=== PATIENT | male | born 1980 | race Caucasian/White ===

== ENCOUNTER 2023-06-10 17:01 | Emergency (ER) | payer SELFPAY ==
[~2023-06-10] VITALS: Ht 160 cm; Wt 75.0 kg
[~2023-06-10 17:01] MED LIST: CARDIZEM CD 12120 MG PO; NO HOME MEDICATIONS; ZESTRIL 5MG5 MG PO
[2023-06-10 17:07] VITALS: TEMP 102.7
[2023-06-10 17:28] LABS: BASO % 0.6 % (0.0-2.0); EOS % 0.2 % (0.0-4.0); GRAN # 3.4 K/mm3 (1.4-6.5); GRAN % 67.4 % (42.2-75.2); HEMATOCRIT 42.3 % (42.0-52.0); HEMOGLOBIN 14.6 g/dl (13.5-18.0); LYMPH # 1.1 K/mm3 (1.2-3.4); LYMPH % 22.2 % (20.0-51.0); MEAN CELL VOLUME 89 fl (80.0-100.0); MEAN CORPUSCULAR HEMOGLOBIN 31 pg (27-31); MEAN CORPUSCULAR HGB CONC 35 g/dl (33.0-37.0); MEAN PLATELET VOLUME 11.1 fl (7.4-10.4); MONO # 0.5 K/mm3 (0.1-0.6); MONO % 9.4 % (1.7-9.3); PLATELET COUNT 177 K/mm3 (130-400); RED BLOOD COUNT 4.76 M/mm3 (4.20-5.60); REDCELL DISTRIBUTION WIDTH-CV 12.6 % (11.5-14.5)
[2023-06-10] MEDS ORDERED: Acetaminophen 500 MG TAB PO ONE (17:30)
[2023-06-10 18:10] LABS: ALANINE AMINOTRANSFERASE 35 U/L (0-55); ALKALINE PHOSPHATASE 57 U/L (40-150); ANION GAP 11 mmol/L (7-16); AST,SGOT 25 U/L (5-34); BILIRUBIN,TOTAL 0.4 mg/dL (0.2-1.2); BLOOD UREA NITROGEN 12 mg/dL (9-21); CALCIUM 9.2 mg/dL (8.4-10.2); CHLORIDE 103 mEq/L (98-107); CREATININE, serum 1.04 mg/dL (0.72-1.25); GLUCOSE 112 mg/dL (70-99); POTASSIUM 3.9 mEq/L (3.5-4.5); SODIUM 135 mEq/L (136-145)
[2023-06-10] MEDS ORDERED: NS 1,000 ML IV ONE (18:15)
[2023-06-10] MEDS ORDERED: Ondansetron 4 MG/2 ML VIAL IV ONE (18:15)
[2023-06-10 18:16] LABS: TROPONIN-I < 0.010 ng/mL (0.00-0.033)
[2023-06-10 19:46] VITALS: BP 121/73; PULSE 84
== END 2023-06-10 19:55 | disposition home or self-care (01) ==
LOC: COL.ER 17:01
PROVIDERS: Physician Assistant
DX: J10.1 Influenza due to other identified influenza virus with other respiratory manifestations (principal); E87.1 Hypo-osmolality and hyponatremia
CPT/HCPCS: J2405; J7030

== ENCOUNTER 2023-08-26 13:07 | Emergency (ER) | payer SELFPAY ==
[~2023-08-26] VITALS: Ht 165.1 cm; Wt 76.2 kg
[2023-08-26 13:14] VITALS: TEMP 98.1
[2023-08-26] MEDS ORDERED: PRINIVIL5 MG PO (13:21)
[2023-08-26] MEDS ORDERED: PRINZIDE 25 MG-1 TAB PO (13:23)
[2023-08-26 13:49] LABS: BASO # 0.1 K/mm3 (0.0-0.2); BASO % 0.8 % (0.0-2.0); EOS # 0.1 K/mm3 (0.0-0.7); EOS % 1.5 % (0.0-4.0); GRAN # 3.2 K/mm3 (1.4-6.5); GRAN % 49.4 % (42.2-75.2); HEMATOCRIT 42.4 % (42.0-52.0); HEMOGLOBIN 14.3 g/dl (13.5-18.0); LYMPH # 2.7 K/mm3 (1.2-3.4); LYMPH % 41.4 % (20.0-51.0); MEAN CELL VOLUME 89 fl (80.0-100.0); MEAN CORPUSCULAR HEMOGLOBIN 30 pg (27-31); MEAN CORPUSCULAR HGB CONC 34 g/dl (33.0-37.0); MONO # 0.4 K/mm3 (0.1-0.6); MONO % 6.6 % (1.7-9.3); PLATELET COUNT 234 K/mm3 (130-400); RED BLOOD COUNT 4.75 M/mm3 (4.20-5.60); REDCELL DISTRIBUTION WIDTH-CV 13.2 % (11.5-14.5)
[2023-08-26 14:05] LABS: ALANINE AMINOTRANSFERASE 30 U/L (0-55); ALBUMIN 4.3 g/dL (3.5-5.0); ALKALINE PHOSPHATASE 57 U/L (40-150); ANION GAP 10 mmol/L (7-16); AST,SGOT 25 U/L (5-34); BILIRUBIN,TOTAL 0.6 mg/dL (0.2-1.2); BLOOD UREA NITROGEN 19 mg/dL (9-21); CALCIUM 8.9 mg/dL (8.4-10.2); CHLORIDE 106 mEq/L (98-107); CREATININE, serum 1.05 mg/dL (0.72-1.25); GLUCOSE 100 mg/dL (70-99); POTASSIUM 3.9 mEq/L (3.5-4.5); SODIUM 139 mEq/L (136-145); TOTAL PROTEIN 8.3 g/dl (6.2-8.1)
[2023-08-26 14:17] LABS: TROPONIN-I < 0.010 ng/mL (0.00-0.033)
[2023-08-26] MEDS ORDERED: Meclizine 25 MG TAB PO ONE (15:00)
[2023-08-26] MEDS ORDERED: ANTIVERT 25MG25 MG PO (15:42)
[2023-08-26] MEDS ORDERED: DEBROX OT (15:42)
[2023-08-26 15:52] VITALS: BP 122/77; PULSE 59
== END 2023-08-26 15:52 | disposition home or self-care (01) ==
LOC: COL.ER 13:07
PROVIDERS: Physician Assistant
DX: H61.23 Impacted cerumen, bilateral (principal); I10 Essential (primary) hypertension; Z79.899 Other long term (current) drug therapy